=== PATIENT | male | born 1945 ===

== ENCOUNTER → 2020-06-18 12:29 | Outpatient (REF) | payer MEDICARE, SELFPAY | LOC: HO.SL 12:29 | PROVIDERS: Visit Provider Internal Medicine Critical Care Medicine | DX: G47.33 Obstructive sleep apnea (adult) (pediatric) (principal) | CPT/HCPCS: 95806 ==

== ENCOUNTER → 2020-07-09 14:42 | Outpatient (BNVA) | payer SELFPAY | PROVIDERS: PCP Internal Medicine; Visit Provider Urology | DX: Z76.89 Persons encountering health services in other specified circumstances (principal) ==

== ENCOUNTER → 2020-08-19 13:18 | Outpatient (BNVA) | payer OTHER, SELFPAY | PROVIDERS: PCP Internal Medicine; Referring Provider Internal Medicine; Visit Provider Urology | DX: Z76.89 Persons encountering health services in other specified circumstances (principal) ==

== ENCOUNTER → 2021-02-17 14:17 | Outpatient (BNVA) | payer OTHER, SELFPAY | PROVIDERS: PCP Internal Medicine; Visit Provider Urology ==

== ENCOUNTER → 2022-12-24 11:19 | Outpatient (BNVA) | payer OTHER, SELFPAY | PROVIDERS: PCP Internal Medicine; Visit Provider Urology | DX: Z13.89 Encounter for screening for other disorder (principal) ==

== ENCOUNTER 2023-06-21 10:54 | Outpatient (AMB) | payer OTHER, SELFPAY ==
--- NOTE | 2023-06-21 11:02 | MHC.OFFVIS ---
Intake Intake Visit Reasons: 6m/PVR Intake Note: Patient is Present for Follow Up PVR Urology Medication: Finasteride, Tamsulosin Antibiotic Allergies: None Blood Thinners: None Pharmacy: [facility] PVR: 0 Patient states that he only takes tamsulosin during the night because during the day he urinates alot Allergies No Known Allergies Allergy (Verified 06/21/23 11:06) HPI HPI Comments History of Present Illness Details Wong is a pleasant male. He is a patient of Dr. Molina. He seen for the following urologic conditions - elevated PSA - weakness of stream with incomplete emptying Progressive weakness of stream Recommend ofice cystoscopy Nocturia x3 but has sleep apnea and has dry throat Suggest gargle Elevated PSA/Abnormal HILARY: PSA stable Continue tamsulosin and finasteride for PSA and urinary control He presents for further evaluation of elevated PSA. Current management is medication with 5AR and tamsulosin Laboratory investigations include a total PSA evaluation 02/12 7.6 08/14 , a total PSA evaluation 3.6, 02/13 , a total PSA evaluation 1.7, 09/16 1.9, 07/18 1.6 Individualized Prostate Cancer Risk Calculator 10-15% chance of high risk prostate cancer , Discussion regarding TRUS biopsy performed , Discussed use of 5AR to help differentiate prostate cancer from benign disease. He would like to try this and understands the small risk associated with a delay in diagnosis. Symptoms include incomplete emptying, nocturia, x 3, weak stream, and are worsening. Overall symptoms are improvement in voiding with finasteride. Therapeutic plan will be continued surveillance 6 months for urination [facility] Medical History Depression Nocturia Bladder outlet obstruction Elevated PSA Review of Systems Const Denies chills and Denies fever(s) Card Reports no additional complaints and Denies syncope Resp Denies cough GI Denies abdominal pain and Denies heartburn Reports as per HPI and Denies change in libido Neuro Denies syncope Psych Denies change in libido Endo Denies change in libido Physical Exam Const General: cooperative, healthy appearing, comfortable and no acute distress Orientation/consciousness: patient oriented x3 HEENT Face and sinus: Yes normal facial exam Mouth: moist mucous membranes Neck Neck: Yes normal visual inspection, Yes full ROM and Yes trachea midline Chest Chest palpation & inspection: normal inspection of the chest Resp Effort & Inspection: normal respiratory effort, able to speak in complete sentences and no respiratory distress GI Inspection: Yes normal to inspection Back/Spine/Pelvis Cervical Spine: normal cervical lordosis Thoracic/Lumbar Spine: thoracic and lumbar spine normal to inspection Skin General skin exam: no rashes or lesions noted Neuro General: patient oriented x3, gait normal, tone normal and moves all extremities Extrem General: Yes normal to inspection and Yes capillary refill normal Office Procedures Post Void Residual Post Residual Void Post Void Residual (PVR): 0 [id number]-[id number] Void Residual by ultrasound Results AMB Urinalysis, Automated UA Leukoctes 0 Jeremy/uL Last Edit by Louise Carbone [facility] on 06/21/23 11:12 UA Nitrite Negative Last Edit by Louise Carbone [facility] on 06/21/23 11:12 UA Urobilinogen 0.2 mg/dL Last Edit by Louise Carbone A on 06/21/23 11:12 UA Protein 15 mg/dL Last Edit by Louise Carbone [facility] on 06/21/23 11:12 UA pH 6.0 Last Edit by Louise Carbone [facility] on 06/21/23 11:12 UA Blood 0 [place]/uL Last Edit by Louise Carbone [facility] on 06/21/23 11:12 UA Specific [place] 1.015 Last Edit by Louise Carbone [facility] on 06/21/23 11:12 UA Ketone Negative Last Edit by Louise Carbone [facility] on 06/21/23 11:12 UA Bilirubin 0 mg/dL Last Edit by Louise Carbone [facility] on 06/21/23 11:12 UA Glucose 0 mg/dL Last Edit by Louise Carbone [facility] on 06/21/23 11:12 Results Reviewed Results Reviewed: Laboratory Last Values Urine pH (Auto) 6.0 06/21/23 11:06 Specific [place] (Auto) 1.015 06/21/23 11:06 Urine Protein (Auto) 15 mg/dL 06/21/23 11:06 Glucose (UA)(Auto) 0 mg/dL 06/21/23 11:06 Urine Ketones (Auto) Negative 06/21/23 11:06 Urine Blood (Auto) 0 [place]/uL 06/21/23 11:06 Urine Nitrite (Auto) Negative 06/21/23 11:06 Urine Bilirubin (Auto) 0 mg/dL 06/21/23 11:06 Urine Urobilinogen (Auto) 0.2 mg/dL 06/21/23 11:06 Leukocyte Esterase (Auto) 0 Jeremy/uL 06/21/23 11:06 Assessment & Plan Assessment & Plan (1) Weak urinary stream: Code(s): R39.12 - Poor urinary stream (2) Nocturia more than twice per night: Code(s): R35.1 - Nocturia Plan Office cystoscopy Orders: Orders AMB Post Void Residual by ultrasound 06/21/23 R35.1 - Nocturia AMB Urinalysis Automated 06/21/23 Z13.9 - Encounter for screening, unspecified Patient Instructions: Imaging studies, laboratory and physical exam results were discussed and reviewed in detail. No major barriers to patient understanding were identified. An opportunity to ask questions regarding the treatment plan was provided. All questions were answered. The patient expressed understanding and agreement with the above treatment plan. The patient is aware they should contact our office by phone for worsening of their current condition or the appearance of new urologic symptoms. Compliance is encouraged with any medications and followup testing that is ordered. It is a privilege to participate in the urologic care of your patient. If you have any questions or concerns regarding treatment for the above conditions, or other urologic issues, please do not hesitate to contact me. The office telephone contact is [phone]. This note is constructed using voice recognition software. While every effort has been made to ensure accuracy cable installer repairer errors may have been included. Yours sincerely, Dr Ranjan Macdonald MD, [facility] - Urology Providers of Expert, Compassionate Care for the Genitourinary System Coding Level of Care Code Est Pt Level 4 (04612) Diagnoses Weak urinary stream R39.12 Nocturia more than twice per night R35.1 CPT Codes Post Residual Void - PVR CPT Code: 39220-Fjrq Void Residual by ultrasound ([id number])
== END 2023-06-21 12:16 | disposition home or self-care (01) ==
PROVIDERS: Visit Provider Urology
DX: R39.12 Poor urinary stream (principal); R35.1 Nocturia
CPT/HCPCS: 99214

== ENCOUNTER → 2023-06-21 10:54 | Outpatient (BNVA) | payer OTHER, SELFPAY | PROVIDERS: Visit Provider Urology | DX: R39.12 Poor urinary stream (principal); R35.1 Nocturia | CPT/HCPCS: 51798; 81003 ==

== ENCOUNTER 2023-10-20 10:00 | Outpatient (AMB) | payer MEDICARE, SELFPAY ==
--- NOTE | 2023-10-20 10:56 | MHC.OFFVIS ---
Intake Intake Visit Reasons: Cysto Intake Note: Patient presents today for a Cystoscopy Meds: Finasteride Allergies to Antibiotic: No Known Allergies Blood Thinner: None Urinalysis test clear for Cysto? Yes Disposable Uro-G Cystoscope Cannula: Lot: [id number] Exp: 01/09/2025 Metal Fabricator Welder Required: No Accompanied by: Self / Same As Patient Allergies No Known Allergies Allergy (Verified 10/20/23 11:15) Medication List - Last Reconciled 10/20/23 by Ranjan Macdonald MD albuterol sulfate 90 mcg/actuation 0 mcg inhalation albuterol sulfate mg inhalation Q4H PRN bupropion HCl 300 mg PO DAILY finasteride 5 mg PO DAILY fluticasone propion-salmeterol 500-50 mcg/dose ea inhalation fluticasone propionate 50 mcg/actuation 0 mcg intranasal furosemide 40 mg PO DAILY ipratropium bromide 2 sprays intranasal BID ipratropium-albuterol 20-100 mcg/actuation inhalation loratadine 10 mg PO DAILY oxybutynin chloride ER 5 mg PO DAILY 30 days pantoprazole 40 mg PO DAILY sertraline 25 mg PO DAILY sertraline 50 mg PO DAILY tamsulosin 0.4 mg PO BEDTIME 90 days tiotropium bromide 1 cap inhalation DAILY tizanidine 2 mg PO Q6H PRN HPI HPI Comments History of Present Illness Details Wong is a pleasant male. He is a patient of Dr. Molina. He seen for the following urologic conditions - elevated PSA - weakness of stream with incomplete emptying Progressive weakness of stream Office cystoscopy Open bladder neck Likely component of overactive bladder Trial oxybutynin Lower urinary tract symptoms PSA stable Continue tamsulosin He presents for further evaluation of elevated PSA. Current management is medication with 5AR and tamsulosin Laboratory investigations include a total PSA evaluation 02/12 7.6 08/14 , a total PSA evaluation 3.6, 02/13 , a total PSA evaluation 1.7, 09/16 1.9, 07/18 1.6 Individualized Prostate Cancer Risk Calculator 10-15% chance of high risk prostate cancer , Discussion regarding TRUS biopsy performed , Discussed use of 5AR to help differentiate prostate cancer from benign disease. He would like to try this and understands the small risk associated with a delay in diagnosis. Symptoms include incomplete emptying, nocturia, x 3, weak stream, and are worsening. Overall symptoms are improvement in voiding with finasteride. Therapeutic plan trial oxybutynin 5 mg 2 month follow-up [facility] Medical History Depression Nocturia Bladder outlet obstruction Elevated PSA Review of Systems Const Denies chills and Denies fever(s) Card Reports no additional complaints and Denies syncope Resp Denies cough GI Denies abdominal pain and Denies heartburn Reports as per HPI and Denies change in libido Neuro Denies syncope Psych Denies change in libido Endo Denies change in libido Physical Exam Const General: cooperative, healthy appearing, comfortable and no acute distress Orientation/consciousness: patient oriented x3 HEENT Face and sinus: Yes normal facial exam Mouth: moist mucous membranes Neck Neck: Yes normal visual inspection, Yes full ROM and Yes trachea midline Chest Chest palpation & inspection: normal inspection of the chest Resp Effort & Inspection: normal respiratory effort, able to speak in complete sentences and no respiratory distress GI Inspection: Yes normal to inspection Back/Spine/Pelvis Cervical Spine: normal cervical lordosis Thoracic/Lumbar Spine: thoracic and lumbar spine normal to inspection Skin General skin exam: no rashes or lesions noted Neuro General: patient oriented x3, gait normal, tone normal and moves all extremities Extrem General: Yes normal to inspection and Yes capillary refill normal Office Procedures Cystoscopy Consent Discussed risk and benefit or proposed procedure with the patient. Information consent for procedure given to the patient. Discussed technical aspects, risks, benefits and alternatives in full. Addressed all of the patient's questions and concerns regarding the procedure. The patient demonstrated knowledge and understanding. They wish to proceed with this procedure. Preparation The patient was prepped in the usual manner. A fine arts instructor was present and in the room. Genitalia was prepped with betadine solution in a sterile manner. Lidocaine Jelly 2% was placed into the urethra and 16Fr flexible Olympus cystoscope was inserted into the meatus after adequate lubrication. Procedure Meatus normal position, uncircumcised Urethra anterior and posterior urethra normal Prostatic Urethra unremarkable open Bladder examination with retroflexion of cystoscope Bladder Orifices normal shape and position Bladder Capacity median Trabeculations grade 1 Cellule Formation - Diverticulum Formation - Mucosal Erythema - Bladder Tumor - [id number]-[id number] DISPOSABLE SCOPE URO-G FLEXIBLE SCOPE Procedure code (CPT) selection complete Office Meds lidocaine HCl 2 % mucosal jelly in applicator Performing Provider: Ranjan Macdonald MD Performing Location: [facility] [place] [facility] Administered by: Pola Ingram LPN on 10/20/23 11:23 Dose Route Admin Location Dispensed Lot Number Expiration Date ND Gimp Tacker 10 mL intra-urethral 10 mL nitrofurantoin monohydrate/macrocrystals 100 mg capsule Performing Provider: Ranjan Macdonald MD Performing Location: [facility] [place] [facility] Administered by: Pola Ingram LPN on 10/20/23 11:23 Dose Route Admin Location Dispensed Lot Number Expiration Date NDC Gimp Tacker 100 mg PO 1 cap naproxen 500 mg tablet Performing Provider: Ranjan Macdonald MD Performing Location: [facility] [place] [facility] Administered by: Pola Ingram LPN on 10/20/23 11:23 Dose Route Admin Location Dispensed Lot Number Expiration Date NDC Gimp Tacker 500 mg PO 1 tab Results AMB Urinalysis, Automated UA Leukoctes 0 Jeremy/uL Last Edit by Leny Baez CMA on 10/20/23 11:19 UA Nitrite Negative Last Edit by Leny Baez [facility] on 10/20/23 11:19 UA Urobilinogen 0.2 mg/dL Last Edit by Leny Baez CMA on 10/20/23 11:19 UA Protein 15 mg/dL Last Edit by Leny Baez [facility] on 10/20/23 11:19 UA pH 6.0 Last Edit by Leny Baez [facility] on 10/20/23 11:19 UA Blood 0 [place]/uL Last Edit by Leny Baez [facility] on 10/20/23 11:19 UA Specific [place] 1.025 Last Edit by Leny Baez CMA on 10/20/23 11:19 UA Ketone Negative Last Edit by Leny Baez CMA on 10/20/23 11:19 UA Bilirubin 0 mg/dL Last Edit by Leny Baez [facility] on 10/20/23 11:19 UA Glucose 0 mg/dL Last Edit by Leny Baez [facility] on 10/20/23 11:19 Results Reviewed Results Reviewed: Laboratory Last Values Urine pH (Auto) 6.0 10/20/23 11:15 Specific [place] (Auto) 1.025 10/20/23 11:15 Urine Protein (Auto) 15 mg/dL 10/20/23 11:15 Glucose (UA)(Auto) 0 mg/dL 10/20/23 11:15 Urine Ketones (Auto) Negative 10/20/23 11:15 Urine Blood (Auto) 0 [place]/uL 10/20/23 11:15 Urine Nitrite (Auto) Negative 10/20/23 11:15 Urine Bilirubin (Auto) 0 mg/dL 10/20/23 11:15 Urine Urobilinogen (Auto) 0.2 mg/dL 10/20/23 11:15 Leukocyte Esterase (Auto) 0 Jeremy/uL 10/20/23 11:15 Assessment & Plan Assessment & Plan (1) Urinary urgency: Code(s): R39.15 - Urgency of urination (2) Nocturia more than twice per night: Code(s): R35.1 - Nocturia Plan Trial of OAB medication Orders: Orders AMB Cystoscopy 10/20/23 R35.1 - Nocturia, R39.12 - Poor urinary stream, R39.15 - Urgency of urination, R97.20 - Elevated prostate specific antigen [PSA] AMB Urinalysis Automated 10/20/23 R33.9 - Retention of urine, unspecified Medications: New oxybutynin chloride ER 5 mg PO DAILY 30 tabs 1RF 30 days R39.15 - Urgency of urination Refilled tamsulosin 0.4 mg PO BEDTIME 90 caps 3RF 90 days N40.1 - Benign prostatic hyperplasia with lower urinary tract symptoms, R35.1 - Nocturia, R39.12 - Poor urinary stream Discontinued finasteride Discontinued Reason: Doctor's Order 5 mg PO DAILY 90 tabs 3RF Patient Instructions: Imaging studies, laboratory and physical exam results were discussed and reviewed in detail. No major barriers to patient understanding were identified. An opportunity to ask questions regarding the treatment plan was provided. All questions were answered. The patient expressed understanding and agreement with the above treatment plan. The patient is aware they should contact our office by phone for worsening of their current condition or the appearance of new urologic symptoms. Compliance is encouraged with any medications and followup testing that is ordered. It is a privilege to participate in the urologic care of your patient. If you have any questions or concerns regarding treatment for the above conditions, or other urologic issues, please do not hesitate to contact me. The office telephone contact is [phone]. This note is constructed using voice recognition software. While every effort has been made to ensure accuracy franchise business consultant errors may have been included. Yours sincerely, Dr Ranjan Macdonald MD, [facility] - Urology Providers of Expert, Compassionate Care for the Genitourinary System Coding Level of Care Code Est Pt Level 4 (23974) Diagnoses Urinary urgency R39.15 Nocturia more than twice per night R35.1 CPT Codes Cystoscopy - CPT: 84716-[id number] ([id number])
== END 2023-10-20 11:40 | disposition home or self-care (01) ==
PROVIDERS: PCP Internal Medicine; Visit Provider Urology
DX: R39.15 Urgency of urination (principal); R35.1 Nocturia
CPT/HCPCS: 52000; 99214

== ENCOUNTER → 2023-10-20 10:00 | Outpatient (BNVA) | payer MEDICARE, SELFPAY | PROVIDERS: PCP Internal Medicine; Visit Provider Urology | DX: R39.15 Urgency of urination (principal); R35.1 Nocturia | CPT/HCPCS: 52000; 81003; 99212 ==

== ENCOUNTER 2023-12-20 14:29 | Outpatient (AMB) | payer MEDICARE, SELFPAY ==
--- NOTE | 2023-12-20 14:30 | A.OFFVIS_ITS ---
Intake Visit Reasons: 2M Med Review(Oxybutynin) Intake Note: Patient is Present for Telephone Follow Up Med Review Urology Med: Oxybutynin, Tamsulosin Antibiotic Allergy:None Blood Thinner: None Allergies No Known Allergies Allergy (Verified 10/20/23 11:15) HPI Comments Details: Wong is a pleasant male. He is a patient of Dr. Molina. He seen for the following urologic conditions - elevated PSA - weakness of stream with incomplete emptying Telemedicine Evaluation 15 min Consultation [employer]ha Video attempted Followup of oxybutynin Did not take Represcribe Nocturia Progressive weakness of stream Prior Office cystoscopy - Open bladder neck Component of overactive bladder Lower urinary tract symptoms PSA stable Continue tamsulosin He presents for further evaluation of elevated PSA. Current management is medication with 5AR and tamsulosin Laboratory investigations include a total PSA evaluation 02/12 7.6 08/14 , a total PSA evaluation 3.6, 02/13 , a total PSA evaluation 1.7, 09/16 1.9, 07/18 1.6 Individualized Prostate Cancer Risk Calculator 10-15% chance of high risk prostate cancer , Discussion regarding TRUS biopsy performed , Discussed use of 5AR to help differentiate prostate cancer from benign disease. He would like to try this and understands the small risk associated with a delay in diagnosis. Symptoms include incomplete emptying, nocturia, x 3, weak stream, and are worsening. Overall symptoms are improvement in voiding with tamsulosin [facility] Medical History Depression Nocturia Bladder outlet obstruction Elevated PSA Review of Systems Const All systems reviewed & are unremarkable except as noted in HPI and below Reports no additional complaints Resp Reports no additional complaints GI Reports no additional complaints Reports as per HPI Musc Reports no additional complaints Physical Exam Telemedicine evaluation Appropriate responses Regular breathing rate and rhythm HEENT Head: Yes normal to inspection Ears: hearing grossly normal bilaterally Eyes General: appearance normal, both eyes and all related structures Neck Neck: Yes normal visual inspection Chest Chest palpation & inspection: normal inspection of the chest Resp Effort & Inspection: normal respiratory effort and able to speak in complete sentences Telehealth Telehealth Location of provider rendering services: practice address Location of patient: address on file Patient Identification confirmed using: Name, : Yes Telehealth method: video Patient verbally consented to treatment: Yes Patient verbally consented to billing insurance company: Yes Patient informed of any privacy concerns related to visit: Yes Minutes spent on Phone/Video with Pt.: 15 Assessment & Plan Assessment & Plan (1) Weak urinary stream: Code(s): R39.12 - Poor urinary stream Category: Medical (2) Urinary urgency: Code(s): R39.15 - Urgency of urination Category: Medical Plan Two month follow-up Medications: New oxybutynin chloride ER 5 mg PO DAILY 30 tabs 1RF 30 days Patient Instructions: Imaging studies, laboratory and physical exam results were discussed and reviewed in detail. No major barriers to patient understanding were identified. An opportunity to ask questions regarding the treatment plan was provided. All questions were answered. The patient expressed understanding and agreement with the above treatment plan. The patient is aware they should contact our office by phone for worsening of their current condition or the appearance of new urologic symptoms. Compliance is encouraged with any medications and followup testing that is ordered. It is a privilege to participate in the urologic care of your patient. If you have any questions or concerns regarding treatment for the above conditions, or other urologic issues, please do not hesitate to contact me. The office telephone contact is [phone]. This note is constructed using voice recognition software. While every effort has been made to ensure accuracy pump installer errors may have been included. Yours sincerely, Dr Ranjan Macdonald MD, [facility] - Urology Providers of Expert, Compassionate Care for the Genitourinary System Coding Level of Care Code Tele Est Pt Level 3 (02478) Diagnoses Weak urinary stream R39.12 Urinary urgency R39.15
== END 2023-12-20 14:55 | disposition home or self-care (01) ==
LOC: HO.HUSH 14:29
PROVIDERS: PCP Internal Medicine; Visit Provider Urology
DX: E11.69 Type 2 diabetes mellitus with other specified complication (principal); N52.1 Erectile dysfunction due to diseases classified elsewhere; E29.1 Testicular hypofunction
CPT/HCPCS: 99213

== ENCOUNTER → 2023-12-20 14:29 | Outpatient (BNVA) | payer MEDICARE, SELFPAY | PROVIDERS: PCP Internal Medicine; Visit Provider Urology ==

== ENCOUNTER 2024-02-22 12:23 | Outpatient (AMB) | payer MEDICARE, SELFPAY ==
--- NOTE | 2024-02-22 13:06 | MHC.OFFVIS ---
Intake Visit Reasons: 2M Med Review(Oxybutynin) Intake Note: Patient presents to the office today for a 2 month med review. Urology Medication: Oxybutynin, Tamsulosin Antibiotic Allergies: None Blood Thinners: None PVR: 0ml Allergies No Known Allergies Allergy (Verified 02/22/24 13:06) HPI Comments Details: Wong is a pleasant male. He is a patient of Dr. Molina. He seen for the following urologic conditions - elevated PSA - weakness of stream with incomplete emptying Oxybutynin follow-up Has improvement Refill Nocturia Progressive weakness of stream Prior Office cystoscopy - Open bladder neck Component of overactive bladder Combination tamsulosin Lower urinary tract symptoms PSA stable Continue tamsulosin He presents for further evaluation of elevated PSA. Current management is medication with 5AR and tamsulosin Laboratory investigations include a total PSA evaluation 02/12 7.6 08/14 , a total PSA evaluation 3.6, 02/13 , a total PSA evaluation 1.7, 09/16 1.9, 07/18 1.6 Individualized Prostate Cancer Risk Calculator 10-15% chance of high risk prostate cancer , Discussion regarding TRUS biopsy performed , Discussed use of 5AR to help differentiate prostate cancer from benign disease. He would like to try this and understands the small risk associated with a delay in diagnosis. Symptoms include incomplete emptying, nocturia, x 3, weak stream, and are worsening. Overall symptoms are improvement in voiding with tamsulosin [facility] Medical History Depression Nocturia Bladder outlet obstruction Elevated PSA Review of Systems Const Denies chills and Denies fever(s) Card Reports no additional complaints and Denies syncope Resp Denies cough GI Denies abdominal pain and Denies heartburn Reports as per HPI and Denies change in libido Neuro Denies syncope Psych Denies change in libido Endo Denies change in libido Physical Exam Const General: cooperative, healthy appearing, comfortable and no acute distress Orientation/consciousness: patient oriented x3 HEENT Face and sinus: Yes normal facial exam Mouth: moist mucous membranes Neck Neck: Yes normal visual inspection, Yes full ROM and Yes trachea midline Chest Chest palpation & inspection: normal inspection of the chest Resp Effort & Inspection: normal respiratory effort, able to speak in complete sentences and no respiratory distress GI Inspection: Yes normal to inspection Back/Spine/Pelvis Cervical Spine: normal cervical lordosis Thoracic/Lumbar Spine: thoracic and lumbar spine normal to inspection Skin General skin exam: no rashes or lesions noted Neuro General: patient oriented x3, gait normal, tone normal and moves all extremities Extrem General: Yes normal to inspection and Yes capillary refill normal Office Procedures Post Void Residual Post Residual Void Post Void Residual (PVR): 0 [id number] Void Residual by ultrasound Assessment & Plan Assessment & Plan (1) Nocturia more than twice per night: Code(s): R35.1 - Nocturia Category: Medical (2) Urinary urgency: Code(s): R39.15 - Urgency of urination Category: Medical (3) Weak urinary stream: Code(s): R39.12 - Poor urinary stream Category: Medical Plan Six-month follow-up Orders: Orders AMB Post Void Residual by ultrasound Today R39.15 - Urgency of urination Medications: Changed From oxybutynin chloride ER 5 mg PO DAILY 30 days 30 tabs 1RF R35.1 - Nocturia To oxybutynin chloride ER 5 mg PO DAILY 90 days 90 tabs 1RF R35.1 - Nocturia Discontinued oxybutynin chloride ER Discontinued Reason: Duplicate 5 mg PO DAILY 30 days 30 tabs 1RF R39.15 - Urgency of urination Patient Instructions: Imaging studies, laboratory and physical exam results were discussed and reviewed in detail. No major barriers to patient understanding were identified. An opportunity to ask questions regarding the treatment plan was provided. All questions were answered. The patient expressed understanding and agreement with the above treatment plan. The patient is aware they should contact our office by phone for worsening of their current condition or the appearance of new urologic symptoms. Compliance is encouraged with any medications and followup testing that is ordered. It is a privilege to participate in the urologic care of your patient. If you have any questions or concerns regarding treatment for the above conditions, or other urologic issues, please do not hesitate to contact me. The office telephone contact is [phone]. This note is constructed using voice recognition software. While every effort has been made to ensure accuracy automotive repair technician errors may have been included. Yours sincerely, Dr Ranjan Macdonald MD, [facility] - Urology Providers of Expert, Compassionate Care for the Genitourinary System Coding Level of Care Code Est Pt Level 3 (75006) Diagnoses Nocturia more than twice per night R35.1 Urinary urgency R39.15 Weak urinary stream R39.12 CPT Codes Post Residual Void - PVR CPT Code: 49283-Mgeq Void Residual by ultrasound ([id number])
== END 2024-02-22 13:33 | disposition home or self-care (01) ==
PROVIDERS: PCP Internal Medicine; Visit Provider Urology
DX: R35.1 Nocturia (principal); R39.15 Urgency of urination; R39.12 Poor urinary stream
CPT/HCPCS: 99213

== ENCOUNTER → 2024-02-22 12:23 | Outpatient (BNVA) | payer MEDICARE, SELFPAY | PROVIDERS: PCP Internal Medicine; Visit Provider Urology | DX: R35.1 Nocturia (principal); R39.15 Urgency of urination; R39.12 Poor urinary stream | CPT/HCPCS: 51798; 99212 ==

== ENCOUNTER 2024-08-08 12:25 | Outpatient (AMB) | payer MEDICARE, SELFPAY ==
--- NOTE | 2024-08-08 13:14 | MHC.OFFVIS ---
Intake Visit Reasons: 6m/PVR Intake Note: Patient is present for 6M/PVR Urology Medication:TAMSULOSIN,OXYBUTYNIN Antibiotic Allergy:NONE Blood Thinner:NONE Last PVR:0ML'S Todays PVR:0ML'S Membership Counselor Required: No Allergies No Known Allergies Allergy (Verified 08/08/24 13:15) HPI Comments Details: Wong is a pleasant male. He is a patient of Dr. Molina. He seen for the following urologic conditions - elevated PSA - weakness of stream with incomplete emptying PVR 0 cc Prior Office cystoscopy - Open bladder neck Component of overactive bladder Combination tamsulosin with oxybutynin Lower urinary tract symptoms PSA stable Continue tamsulosin Current management is medication with tamsulosin and oxybutynin Laboratory investigations include a total PSA evaluation 02/12 7.6 08/14 , a total PSA evaluation 3.6, 02/13 , a total PSA evaluation 1.7, 09/16 1.9, 07/18 1.6 Individualized Prostate Cancer Risk Calculator 10-15% chance of high risk prostate cancer , Discussion regarding TRUS biopsy performed , Discussed use of 5AR to help differentiate prostate cancer from benign disease. He would like to try this and understands the small risk associated with a delay in diagnosis. Symptoms include incomplete emptying, nocturia, x 3, weak stream, and are worsening. Overall symptoms are improvement in voiding with tamsulosin [facility] Medical History Depression Nocturia Bladder outlet obstruction Elevated PSA Review of Systems Const Denies chills and Denies fever(s) Card Reports no additional complaints and Denies syncope Resp Denies cough GI Denies abdominal pain and Denies heartburn Reports as per HPI and Denies change in libido Neuro Denies syncope Psych Denies change in libido Endo Denies change in libido Physical Exam Const General: cooperative, healthy appearing, comfortable and no acute distress Orientation/consciousness: patient oriented x3 HEENT Face and sinus: Yes normal facial exam Mouth: moist mucous membranes Neck Neck: Yes normal visual inspection, Yes full ROM and Yes trachea midline Chest Chest palpation & inspection: normal inspection of the chest Resp Effort & Inspection: normal respiratory effort, able to speak in complete sentences and no respiratory distress GI Inspection: Yes normal to inspection Back/Spine/Pelvis Cervical Spine: normal cervical lordosis Thoracic/Lumbar Spine: thoracic and lumbar spine normal to inspection Skin General skin exam: no rashes or lesions noted Neuro General: patient oriented x3, gait normal, tone normal and moves all extremities Extrem General: Yes normal to inspection and Yes capillary refill normal Office Procedures Post Void Residual Post Residual Void Post Void Residual (PVR): 0 [id number] Void Residual by ultrasound Assessment & Plan Assessment & Plan (1) Elevated PSA: Code(s): R97.20 - Elevated prostate specific antigen [PSA] Category: Medical (2) Weak urinary stream: Code(s): R39.12 - Poor urinary stream Category: Medical (3) Nocturia more than twice per night: Code(s): R35.1 - Nocturia Category: Medical Plan Twelve month follow-up PSA Orders: Orders AMB Urinalysis Automated Today Z13.9 - Encounter for screening, unspecified Prostate Specific Antigen 364 Days R35.1 - Nocturia Patient Instructions: Imaging studies, laboratory and physical exam results were discussed and reviewed in detail. No major barriers to patient understanding were identified. An opportunity to ask questions regarding the treatment plan was provided. All questions were answered. The patient expressed understanding and agreement with the above treatment plan. The patient is aware they should contact our office by phone for worsening of their current condition or the appearance of new urologic symptoms. Compliance is encouraged with any medications and followup testing that is ordered. It is a privilege to participate in the urologic care of your patient. If you have any questions or concerns regarding treatment for the above conditions, or other urologic issues, please do not hesitate to contact me. The office telephone contact is [phone]. This note is constructed using voice recognition software. While every effort has been made to ensure accuracy cigarette seller errors may have been included. Yours sincerely, Dr Ranjan Macdonald MD, [facility] - Urology Providers of Expert, Compassionate Care for the Genitourinary System Coding Level of Care Code Est Pt Level 3 (13159) Diagnoses Elevated PSA R97.20 Weak urinary stream R39.12 Nocturia more than twice per night R35.1 CPT Codes Post Residual Void - PVR CPT Code: 88277-Prup Void Residual by ultrasound ([id number])
== END 2024-08-08 13:38 | disposition home or self-care (01) ==
PROVIDERS: PCP Internal Medicine; Visit Provider Urology
DX: R97.20 Elevated prostate specific antigen [PSA] (principal); R39.12 Poor urinary stream; R35.1 Nocturia; Z13.9 Encounter for screening, unspecified
CPT/HCPCS: 99213

== ENCOUNTER → 2024-08-08 12:25 | Outpatient (BNVA) | payer MEDICARE, SELFPAY | PROVIDERS: PCP Internal Medicine; Visit Provider Urology | DX: R97.20 Elevated prostate specific antigen [PSA] (principal); R39.12 Poor urinary stream; R35.1 Nocturia; R33.9 Retention of urine, unspecified | CPT/HCPCS: 51798; 81003; 99212 ==